=== PATIENT | female | born 1945 ===

== ENCOUNTER 2018-08-04 08:01 | Outpatient (CLI) | payer MEDICARE ==
[2018-08-04] MEDS ORDERED: Iopamidol 370 76% 100 ML VIAL ONE (09:56)
--- NOTE | 2018-08-04 10:17 | CT ---
POST CONTRAST SOFT TISSUE NECK CT AND CHEST CT AND ABDOMEN CT WITH CONTRAST: HISTORY: Elevated white blood cell count. Right flank pain. Leukocytosis. COMPARISON: None. TECHNIQUE: Postcontrast soft tissue neck CT, chest CT, and abdomen CT are performed in the axial plane. Sagitta l and coronal reformatted images are submitted for interpretation. FINDINGS: POSTCONTRAST SOFT TISSUE NECK CT: Visualized brain parenchyma is unremarkable. Adequate aeration of the sinuses and mastoid air cells. Visualized orbits are unremarkable. Limited evaluation of the oral cavity due to dental amalgam artifact. Midline fatty raphae of the to ngue appears to be preserved. Epiglottis has a normal caliber. Preepiglottic fat is preserved. Symmetric attenuation of the parotid and submandibular glands. Symmetric attenuation of the sternocl eidomastoid muscles. Grossly, the great vessels of the neck are patent. Evaluation is limited by technique. There is no evidence of lymphadenopathy by size criteria. Cervical spine vertebral body height is maintained. No fracture. Moderate degenerative disk disease at C5-C6 and C6-C7. Grade I anterolisthesis of C3 upon C4 and C4 upon C5. Limited evaluation of th e contents of the central spinal canal and neural foramen due to technique. CT CHEST: Atherosclerosis of a nonaneurysmal thoracic and abdominal aorta. Normal heart size. No pericardial effusion. No mediastinal mass, lymphadenopathy, or hematoma. No hilar mass or lymphadenopathy. Trachea and central bronchi are patent. Lungs are clear of any masses or consolidation. A 3 mm nodu le in the left upper lobe, nonspecific. No pleural effusion or pneumothorax. No evidence of axillary masses. Normal-appearing left and right axial lymph node with preserved fatt y hilum. Right axillary lymph node is slightly prominent measuring 2.1 cm I maximum dimension. Left axillary lymph node is also slightly prominent measuring 2.6 cm in maximum dimension. ABDOMEN CT: Hypodensity in the left and right hepatic lobe are well circumscribed. The largest hypodensity has a n attenuation coefficient of 14 Hounsfield units, suggesting a cyst measuring 1.7 cm. Additional sma ller hypodensities could not be adequately assessed but are also specifically favored to be cysts. G allbladder, spleen, pancreas, and adrenal glands are unremarkable. Hypodensities in both kidneys are statistically favored to be cysts. Bilaterally, no obstructive uro madai. There is stranding of the central abdominal mesentery with mildly prominent lymph nodes. Correlate f or mesenteric lymphadenitis or other etiologies. No gastrohepatic, retrocrural, or periportal lympha denopathy. Incidental small hiatal hernia. No evidence of bowel obstruction. No lytic or blastic lesions in the visualized osseous structures. IMPRESSION: 1. No evidence of significant lymphadenopathy in the chest, abdomen, or soft tissue neck. There are nonspecific bilateral upper normal axillary lymph nodes with preserved fatty hilum. 2. Nonspecific stranding of the abdominal mesentery with mild prominent lymph nodes. Correlate for mesenteric lymphadenitis. POS: [facility]
== END 2018-08-04 08:02 | disposition home or self-care (01) ==
LOC: CT 08:01
PROVIDERS: ATTEND Internal Medicine Hematology & Oncology
DX: D72.828 Other elevated white blood cell count (principal); M54.2 Cervicalgia; R10.9 Unspecified abdominal pain
CPT/HCPCS: 70491; 71260; 74160; Q9967